=== PATIENT | male | born 1980 | race Caucasian/White ===

== ENCOUNTER 2018-11-29 18:31 | Emergency (ER) | payer OTHER ==
[~2018-11-29] VITALS: Ht 170.2 cm; Wt 89.7 kg
[2018-11-29 18:43] VITALS: BP 144/74; PULSE 60; RESP 18; Ht 170.2 cm; Wt 89.7 kg
--- NOTE | 2018-11-29 19:22 | ERD ---
ER Documentation Chief Complaint Chief Complaint laceration on left eyebrow also c/o headache HPI 38-year-old male who is here for laceration to his left eyebrow that was sustained today. He bent down and accidentally hit a piece of furniture. He sustained a laceration in this manner. There is no loss of consciousness. No vomiting. He is unsure of his last tetanus vaccination. He has mild headache. ROS All systems reviewed and are negative except as per history of present illness. PMhx/Soc Medical and Surgical Hx: pt denies Medical Hx, pt denies Surgical Hx Hx Alcohol Use: Yes Hx Substance Use: No Hx Tobacco Use: No Smoking Status: Never smoker FmHx Family History: No diabetes Physical Exam Vitals Vital Signs Date Temp Pulse Resp B/P (MAP) Pulse Ox O2 O2 Flow FiO2 Time Delivery Rate 11/29/18 97.8 60 18 144/74 99 18:43 (97) Physical Exam INITIAL VITAL SIGNS: Reviewed by me GENERAL: Awake, alert and oriented x 4, well appearing, nontoxic, speaking in f ull sentences. No acute distress HEAD: Atraumatic NECK: Supple. No masses. Full range of motion. No meningismus. No midline ten derness. EYES: EOMI. PERRL. RESPIRATORY: Clear to auscultation bilaterally. Symmetric chest wall rise. No wheezing or rales. No accessory muscle use. CV: Regular rate and rhythm. No murmurs, rubs, or gallops. SKIN: Medial aspect of left eyebrow has 1 cm vertical laceration NEUROLOGIC: Normal mental status and speech. Face is symmetric. Moves all extremities equally. Motor and sensory distally intact. Normal coordination. Ambulates with a strong steady gait. Results 24 hrs Current Medications Medications Dose Sig/Canelo Start Time Status Last (Trade) Ordered Route PRN Stop Time Admin Dose Reason Admin Diphtheria/ 0.5 ml ONCE ONCE 11/29/18 Tetanus/Acell IM* 19:30 11/29/18 Pertussis 19:31 (Adacel) Procedures/MDM Laceration Repair by me: Anesthesia: 1% lidocaine locally Location: Left eyebrow Tendon/Joint/Nerves: No injury Foreign body: None detected after copious irrigation and exploration Technique: Simple Interrupted Sutures Complexity: No subcutaneous sutures/mucosal repair/edge excision Post Closure Length: 1 cm Patient's bleeding was easily controlled in the department and there is no indication of anemia. No evidence of compartment syndrome, neurologic injury, vascular injury, open joint, tendon laceration, or foreign body. Patient is appropriate for outpatient follow up. 48 hour wound check. Scar minimization instructions given. Patient counseled regarding my diagnostic impression and care plan. Prior to discharge all questions answered. Pt agrees with treatment plan and understands strict return precautions. Pt is instructed to follow up with primary care provider within 24-48 hours. Precautionary instructions provided including instructions to return to the ER if not improving or for any worsening or changing symptoms or concerns. Departure Diagnosis: Primary Impression: Laceration Condition: Stable Patient Instructions: Laceration, All Additional Instructions: WOUND CHECK:CONSULTE A HARRISON MDICO EN 2 melo para esther HARRISON HERIDA. SUTURE REMOVAL:CONSULTE A HARRISON MDICO PARA SACAR HARRISON PUNTOS.PARA LA GAGANDEEP 5-6 melo.EN OTRO LUGAR 7-10 melo. SHEREE EMERY PA-C Nov 29, 2018 19:22
[2018-11-29] MEDS ORDERED: DIPHTH/TET/ACEL PERTUSS (ADULT) 0.5 ML VIAL IM* ONE (19:30)
== END 2018-11-29 19:54 | disposition home or self-care (01) ==
LOC: FTE 18:31
DX: S01.112A Laceration without foreign body of left eyelid and periocular area, initial encounter (principal); W22.03XA Walked into furniture, initial encounter; Y92.9 Unspecified place or not applicable; Z23 Encounter for immunization
CPT/HCPCS: 12011; 90471; 90715; Z7502

== ENCOUNTER 2018-12-04 15:47 | Emergency (ER) | payer OTHER ==
[~2018-12-04] VITALS: Ht 167.6 cm; Wt 90.9 kg
[2018-12-04 15:58] VITALS: BP 117/62; PULSE 71; RESP 20; Ht 167.6 cm; Wt 90.9 kg
--- NOTE | 2018-12-04 16:43 | ERD ---
ER Documentation Chief Complaint Chief Complaint Pt here for suture removal from L eyebrow HPI 38 oh male presents for suture removal. States that he got the sutures in place over the eyebrow 5 days ago and was told to come back in 5 to 6 days for removal. Patient denies any bleeding, fevers, chills, discharge from sutures, wound dehiscence, or any other symptoms. ROS All systems reviewed and are negative except as per history of present illness. Allergies Allergies: Coded Allergies: No Known Allergy (Unverified , 12/04/18) PMhx/Soc Medical and Surgical Hx: pt denies Medical Hx, pt denies Surgical Hx Hx Alcohol Use: Yes Hx Substance Use: No Hx Tobacco Use: No Smoking Status: Never smoker FmHx Family History: No diabetes, No coronary disease, No other Physical Exam Vitals Vital Signs Date Temp Pulse Resp B/P (MAP) Pulse Ox O2 O2 Flow FiO2 Time Delivery Rate 12/04/18 98.2 71 20 117/62 100 15:58 (80) Physical Exam Const: No acute distress Head: Atraumatic Eyes: Normal Conjunctiva ENT: Normal External Ears, Nose and Mouth. Neck: Full range of motion. No meningismus. Resp: Clear to auscultation bilaterally Cardio: Regular rate and rhythm, no murmurs Abd: Soft, non tender, non distended. Normal bowel sounds Skin: 2 sutures noted over left eyebrow intact with no dehiscence, bleeding, discharge, edema, erythema noted. Back: No midline or flank tenderness Ext: No cyanosis, or edema Neur: Awake and alert Psych: Normal Mood and Affect Procedures/MDM Suture Removal by me: Sutures removed with tweezers and scissors without incident. Wound shows no evidence of infection, foreign body, neurologic injury, vascular injury, open joint or tendon laceration. Patient to follow up PRN. At this time, patient is stable for discharge and outpatient management. I have instructed the patient to follow-up with his/her primary care physician in 1 day. I have discussed with the patient the possibility of needing to see a specialist for further workup and imaging studies if symptoms persist. I have instructed the patient to promptly return to the ER for any new or worsening symptoms including but not limited to increased pain, fever, nausea, vomiting, weakness or LOC. The patient and/or family expressed understanding of and agreement with this plan. All questions were answered. Home care instructions were provided. Communication with patient throughout the ER course was performed using a manager math . Patient gave verbal confirmation to the practitioner, through the manager math, that they understood everything that was being said to them. DISCLAIMER: Inadvertent spelling and grammatical errors are likely due to EHR/dictation software use and do not reflect on the overall quality of patient care. Also, please note that the electronic time recorded on this note does not necessarily reflect the actual time of the patient encounter. Departure Diagnosis: Primary Impression: Encounter for removal of sutures Condition: Stable Patient Instructions: Suture Removal, No Complication Referrals: [facility] (PCP) Additional Instructions: FOLLOW UP WITH YOUR PRIMARY CARE PHYSICIAN TOMORROW.Return to this facility if you are not improving as expected. CAMPBELL BOBO Dec 04, 2018 16:43
== END 2018-12-04 16:55 | disposition home or self-care (01) ==
LOC: FTE 15:47
DX: Z48.02 Encounter for removal of sutures (principal)
CPT/HCPCS: 99281

== ENCOUNTER 2019-01-13 16:29 | Emergency (ER) | payer OTHER ==
[~2019-01-13] VITALS: Ht 170.2 cm; Wt 89.0 kg
[~2019-01-13 16:29] MED LIST: IBUP-1542 PO
[2019-01-13 16:48] VITALS: BP 128/72; PULSE 59; RESP 18; Ht 170.2 cm; Wt 89.0 kg
[2019-01-13] MEDS ORDERED: IBUPROFEN 600 MG TAB PO ONE (18:00)
== END 2019-01-13 18:43 | disposition home or self-care (01) ==
LOC: FTE 16:29
DX: S99.921A Unspecified injury of right foot, initial encounter (principal); W20.8XXA Other cause of strike by thrown, projected or falling object, initial encounter; Y92.9 Unspecified place or not applicable
CPT/HCPCS: 73660; Z7610